=== PATIENT | male | born 1985 | race Caucasian/White ===

== ENCOUNTER 2016-06-04 14:03 | Emergency (ER) | payer MEDICAID ==
[~2016-06-04] VITALS: Ht 170.2 cm; Wt 158.8 kg
[2016-06-04 14:10] VITALS: BP 142/77; PULSE 119; RESP 22; TEMP 98.4; O2SAT 95
--- NOTE | 2016-06-04 14:10 | NUR ---
Pt to bed 8
--- NOTE | 2016-06-04 14:25 | NUR ---
c/o right lower leg red and swelling for two days.
--- NOTE | 2016-06-04 14:29 | NUR ---
ER at bedside examining patient.
--- NOTE | 2016-06-04 16:28 | NUR ---
Patient given written and verbal discharge instructions and verbalizes understanding. ER MD discussed with patient the results and treatment provided. . Patient in stable condition. ID arm band removed. Rx of septra ds given. Patient educated on pain management and to follow up with PMD. Pain Scale [2]. Opportunity for questions provided and answered.
[2016-06-04 16:32] VITALS: BP 130/70; PULSE 96; RESP 18; TEMP 98.6; O2SAT 95
== END 2016-06-04 16:32 | disposition home or self-care (01) ==
LOC: SED 14:03
DX: L03.115 Cellulitis of right lower limb (principal); R03.0 Elevated blood-pressure reading, without diagnosis of hypertension; M79.605 Pain in left leg; F17.200 Nicotine dependence, unspecified, uncomplicated
CPT/HCPCS: 93971; 99284

== ENCOUNTER 2016-06-06 10:32 | Emergency (ER) | payer MEDICAID ==
[~2016-06-06] VITALS: Ht 170.2 cm; Wt 158.8 kg
--- NOTE | 2016-06-06 10:35 | NUR ---
No nurses available for patient in main ER. Patient placed in waiting room.
[2016-06-06 10:39] VITALS: BP 161/90; PULSE 100; RESP 28; TEMP 97.1; O2SAT 97
--- NOTE | 2016-06-06 10:40 | NUR ---
Patient seen by Dr. Mcnally in triage room.
--- NOTE | 2016-06-06 11:12 | NUR ---
Patient given written and verbal discharge instructions and verbalizes understanding. ER MD discussed with patient the results and treatment provided. Patient in stable condition. ID arm band removed. Rx of cephalexin given. Patient educated on pain management and to follow up with PMD. Pain Scale 0/10. Opportunity for questions provided and answered.
[2016-06-06 11:13] VITALS: BP 161/90; PULSE 100; RESP 28; TEMP 97.1; O2SAT 97
== END 2016-06-06 11:13 | disposition home or self-care (01) ==
LOC: SED 10:32
DX: L03.116 Cellulitis of left lower limb (principal); L03.115 Cellulitis of right lower limb; R03.0 Elevated blood-pressure reading, without diagnosis of hypertension
CPT/HCPCS: 99283

== ENCOUNTER 2017-06-26 10:01 | Emergency (ER) | payer MEDICAID ==
[~2017-06-26] VITALS: Ht 170.2 cm; Wt 166.9 kg
[2017-06-26 10:11] VITALS: BP_SYST 152
[2017-06-26 10:56] LABS: BASOPHILS # (AUTO) 0.1 K/uL (0.0-0.2); BASOPHILS % (AUTO) 0.7 % (0.0-2.0); EOSINOPHILS # (AUTO) 0.4 K/uL (0.0-0.4); EOSINOPHILS % (AUTO) 4.5 % (0.0-4.0); HEMATOCRIT 41.6 % (36-54); HEMOGLOBIN 13.2 g/dL (14.0-18.0); LYMPHOCYTES # (AUTO) 1.8 K/uL (1.0-5.5); LYMPHOCYTES % (AUTO) 20.7 % (20.5-51.5); MEAN CORPUSCULAR HEMOGLOBIN 24 pg (27-31); MEAN CORPUSCULAR HGB CONC 32 % (32-36); MEAN CORPUSCULAR VOLUME 76 fL (79.0-98.0); MONOCYTES # (AUTO) 0.6 K/uL (0.0-1.0); MONOCYTES % (AUTO) 6.6 % (1.7-9.3); NEUTROPHILS % (AUTO) 67.5 % (40.0-70.0); PLATELET COUNT (AUTO) 396 K/uL (130-430); RED BLOOD CELL COUNT(AUTO) 5.46 MIL/uL (4.2-6.2); RED CELL DISTRIBUTION WIDTH 14.3 % (9.0-15.0); WHITE BLOOD COUNT (AUTO) 8.9 K/uL (4.8-10.8)
[2017-06-26 11:09] LABS: CALCIUM 9.2 mg/dL (8.4-11.0); CREATININE 0.61 mg/dL (0.55-1.30); POTASSIUM 3.8 mmol/L (3.5-5.1)
[2017-06-26 11:14] LABS: TOTAL BILIRUBIN 0.3 mg/dL (0.0-1.0)
[2017-06-26 12:00] VITALS: BP_SYST 142
== END 2017-06-26 11:58 | disposition home or self-care (01) ==
LOC: SED 10:01
DX: L03.116 Cellulitis of left lower limb (principal); R03.0 Elevated blood-pressure reading, without diagnosis of hypertension; E66.01 Morbid (severe) obesity due to excess calories; Z68.43 Body mass index [BMI] 50.0-59.9, adult
CPT/HCPCS: 36415; 80053; 85025; 99284